=== PATIENT | female | born 1950 | race Caucasian/White ===

== ENCOUNTER 2017-02-03 19:29 | Emergency (ER) | payer OTHER, MEDICARE ==
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
[2017-02-03 19:40] VITALS: BP 181/98; PULSE 75; TEMP 98.8; BMI 25.7
[2017-02-03] MEDS ORDERED: CLINDAMYCIN HCL 150 MG CAPSULE (FP) ONE (20:18)
[2017-02-03] MEDS ORDERED: CLINDAMYCIN HCL 150 MG CAPSULE (FP) PO ONE (20:21)
== END 2017-02-03 20:35 | disposition home or self-care (01) ==
LOC: FER 19:29
DX: L03.116 Cellulitis of left lower limb (principal); E78.5 Hyperlipidemia, unspecified; E03.9 Hypothyroidism, unspecified
CPT/HCPCS: 73630-TC-LT; 87070; 87205; 99281-25

== ENCOUNTER 2024-01-29 07:29 | Day surgery (SDC) | payer OTHER, MEDICARE ==
[2024-01-24 09:42] VITALS: BMI 25.7
[2024-01-29] MEDS ORDERED: PROPOFOL 140 ML ONE (07:31)
[2024-01-29 08:33] VITALS: TEMP 97.3
[2024-01-29 08:58] VITALS: BP 105/65; PULSE 68; RESP 19
== END 2024-01-29 09:05 | disposition home or self-care (01) ==
LOC: FASU-ENDO 07:29
PROVIDERS: ATTEND Internal Medicine Gastroenterology
PROC: 0DJD8ZZ Inspection of Lower Intestinal Tract, Via Natural or Artificial Opening Endoscopic (ICD-10-PCS; principal; 2024-01-29 08:08)
DX: Z12.11 Encounter for screening for malignant neoplasm of colon (principal); K57.30 Diverticulosis of large intestine without perforation or abscess without bleeding; Z86.010 Personal history of colon polyps